=== PATIENT | male | born 1970 | race African-American/Black ===

== ENCOUNTER 2018-11-10 22:36 | Emergency (ER) | payer SELFPAY ==
[2018-11-11] MEDS ORDERED: ONDANSETRON HCL INJ/PF 4 MG/2 ML SDV IV ONE (00:22)
[2018-11-11] MEDS ORDERED: NORMAL SALINE 1000 ML 1,000 ML IV ONE (00:22)
--- NOTE | 2018-11-11 00:24 | ER Document Report ---
ED Medical Screen (RME) - General Chief Complaint: Abdominal Pain Stated Complaint: VOMITTING,SHAKES,STOMACH PAIN Time Seen by Provider: 11/11/18 00:19 Primary Care Provider: ISABEL JOSEPH MD [Primary Care Provider] - Follow up as needed Notes: 48-year-old male with complains of vomiting, diarrhea, abdominal pain, cough, generalized weakness, chills. Symptoms started yesterday. He states he feels much worse today. He smokes, drinks alcohol occasionally, denies daily medications, surgeries, or diagnosed medical problems. TRAVEL OUTSIDE OF THE [place] IN LAST 30 DAYS: No Physical Exam - Vital signs Vitals: Temp Pulse Resp BP Pulse Ox 98.2 F 80 20 149/85 H 98 11/10/18 22:48 11/10/18 22:48 11/10/18 22:48 11/10/18 22:48 11/10/18 22:48 - Abdominal Tenderness: Tender - Tender in the general upper abdomen, lower abdomen appears benign. Exam is limited by sitting position. Course - Re-evaluation Re-evalutation: I have greeted and performed a rapid initial assessment of this patient. A comprehensive ED assessment and evaluation of the patient, analysis of test results and completion of the medical decision making process will be conducted by additional ED providers. - Vital Signs Vital signs: Temp Pulse Resp BP Pulse Ox 98.2 F 80 20 149/85 H 98 11/10/18 22:48 11/10/18 22:48 11/10/18 22:48 11/10/18 22:48 11/10/18 22:48 Doctor's Discharge - Discharge Referrals: ISABEL JOSEPH MD [Primary Care Provider] - Follow up as needed
[2018-11-11 02:33] LABS: APPEARANCE,URINE CLEAR; BILIRUBIN,URINE NEGATIVE (NEGATIVE); COLOR,URINE YELLOW; GLUCOSE, URINE NEGATIVE (NEGATIVE); KETONES,URINE NEGATIVE (NEGATIVE); LEUKOCYTE ESTERASE,URINE NEGATIVE (NEGATIVE); NITRITE,URINE NEGATIVE (NEGATIVE); PROTEIN,URINE NEGATIVE (NEGATIVE); URINE SPECIFIC GRAVITY 1.005; UROBILINOGEN,URINE NEGATIVE mg/dL (<2.0)
[2018-11-11 02:47] LABS: ABSOLUTE EOSINOPHILS # (AUTO) 0.1 10^3/uL (0.0-0.6); ABSOLUTE LYMPHOCYTES (AUTO) 0.8 10^3/uL (0.5-4.7); ABSOLUTE MONOCYTES (AUTO) 0.6 10^3/uL (0.1-1.4); ABSOLUTE NEUT (AUTO) 2.1 10^3/uL (1.7-8.2); BASOPHILS % (AUTO) 1.3 % (0-2); EOSINOPHILS % (AUTO) 1.8 % (0-6); HEMATOCRIT 36.1 % (37.9-51.0); HEMOGLOBIN 12.2 g/dL (13.5-17.0); LYMPHOCYTES % (AUTO) 22.7 % (13-45); MEAN CORPUSCULAR HEMOGLOBIN 33.7 pg (27.0-33.4); MEAN CORPUSCULAR HGB CONC 33.8 g/dL (32.0-36.0); MEAN CORPUSCULAR VOLUME 100 fl (80-97); RED BLOOD COUNT 3.62 10^6/uL (4.35-5.55); RED CELL DISTRIBUTION WIDTH 16.8 % (11.5-14.0); SEGMENTED NEUTROPHILS % (AUTO) 58.2 % (42-78); TOTAL CELLS COUNTED % (AUTO) 100 %; WHITE BLOOD COUNT 3.5 10^3/uL (4.0-10.5)
[2018-11-11 02:53] LABS: PLATELET COUNT 35 10^3/uL (150-450)
[2018-11-11 03:15] LABS: ALANINE AMINOTRANSFERASE 84 U/L (21-72); ALBUMIN 4.1 g/dL (3.5-5.0); ALKALINE PHOSPHATASE 51 U/L (38-126); ANION GAP 8 (5-19); ASPARTATE AMINO TRANSFERASE 203 U/L (17-59); BILIRUBIN,DIRECT 0.4 mg/dL (0.0-0.4); BILIRUBIN,TOTAL 0.9 mg/dL (0.2-1.3); BLOOD UREA NITROGEN 6 mg/dL (7-20); CALCIUM 9.3 mg/dL (8.4-10.2); CARBON DIOXIDE 24 mmol/L (22-30); CHLORIDE 105 mmol/L (98-107); GLUCOSE 80 mg/dL (75-110); LIPASE 186.3 U/L (23-300); POTASSIUM 3.9 mmol/L (3.6-5.0); SODIUM 137.3 mmol/L (137-145); TOTAL PROTEIN 7.3 g/dL (6.3-8.2)
--- NOTE | 2018-11-11 03:51 | RADIOLOGY REPORT (SQ) ---
EXAM DESCRIPTION: X-ray two view chest. CLINICAL HISTORY: 48 years Male, chills, cough COMPARISON: None. TECHNIQUE: PA and Lateral views of the chest performed on 11/11/2018 at 3:24 AM FINDINGS: The lungs are well expanded and are clear. The costophrenic sulci are clear. There is no evidence of a pneumothorax. The cardiac silhouette is normal in size. The mediastinal contours are normal. No acute osseous abnormalities are identified. No focal soft tissue abnormalities are identified. IMPRESSION: No evidence of acute intrathoracic disease.
[2018-11-11] MEDS ORDERED: ONDANSETRON ODT 4 MG TAB (6 TAB/ER DISP) PO PRN (04:11)
[2018-11-11] MEDS ORDERED: LOPERAMIDE HCL 2 MG CAPSULE PO ONE (04:11)
--- NOTE | 2018-11-11 04:12 | ER Document Report ---
ED General - General Chief Complaint: Abdominal Pain Stated Complaint: VOMITTING,SHAKES,STOMACH PAIN Time Seen by Provider: 11/11/18 00:19 Primary Care Provider: ISABEL JOSEPH MD [NO LOCAL MD] - Follow up as needed Notes: Patient is a 48-year-old male without chronic medical problems, admits to heavy alcohol use, presents complaining of, nasal congestion, sore throat, abdominal cramping, vomiting and diarrhea. Patient states that his symptoms started approximately 24 hours ago, been worsening since onset. Regards him as being moderate to severe in nature. Abdominal discomfort is described as a cramping, throbbing, upper abdominal discomfort worsened by vomiting or diarrheal bowel movements. Has not tried anything for relief of his symptoms prior to presentation today. Denies a history of similar symptoms in the past. No known sick contacts. Has not seen his primary care physician regarding today's concerns. Denies fever. TRAVEL OUTSIDE OF THE [place] IN LAST 30 DAYS: No Past Medical History - General Information source: Patient - Social History Smoking Status: Current Every Day Smoker Frequency of alcohol use: Heavy Drug Abuse: None Lives with: Spouse/Significant other Family History: Reviewed & Not Pertinent Patient has suicidal ideation: No Patient has homicidal ideation: No Renal/ Medical History: Denies: Hx Peritoneal Dialysis Review of Systems - Review of Systems Notes: Constitutional: Negative for fever. HENT: Positive for sore throat. Eyes: Negative for visual changes. Cardiovascular: Negative for chest pain. Respiratory: Negative for shortness of breath. Positive cough Gastrointestinal: Positive for abdominal cramping, vomiting and diarrhea Genitourinary: Negative for dysuria. Musculoskeletal: Negative for back pain. Skin: Negative for rash. Neurological: Negative for headaches, weakness or numbness. 10 point ROS negative except as marked above and in HPI. Physical Exam - Vital signs Vitals: Temp Pulse Resp BP Pulse Ox 98.2 F 80 20 149/85 H 98 11/10/18 22:48 11/10/18 22:48 11/10/18 22:48 11/10/18 22:48 11/10/18 22:48 Interpretation: Hypertensive Notes: PHYSICAL EXAMINATION: GENERAL: Well-appearing, well-nourished and in no acute distress. HEAD: Atraumatic, normocephalic. EYES: Pupils equal round and reactive to light, extraocular movements intact, sclera anicteric, conjunctiva are normal. ENT: nares patent, oropharynx clear without exudates. Moist mucous membranes. NECK: Normal range of motion, supple without lymphadenopathy LUNGS: Breath sounds clear to auscultation bilaterally and equal. No wheezes rales or rhonchi. HEART: Regular rate and rhythm without murmurs ABDOMEN: Soft, nontender, normoactive bowel sounds. No guarding, no rebound. No masses appreciated. EXTREMITIES: Normal range of motion, no pitting or edema. No cyanosis. NEUROLOGICAL: No focal neurological deficits. Moves all extremities spontaneously and on command. PSYCH: Normal mood, normal affect. SKIN: Warm, Dry, normal turgor, no rashes or lesions noted. Course - Re-evaluation Re-evalutation: 11/11/18 04:10 Patient presents with a multitude of symptoms that are most consistent with a viral etiology particular given that he is having sore throat, nasal congestion, cough, abdominal cramping, vomiting and diarrhea. His work-up here today reveals findings consistent with chronic alcohol abuse with transaminitis and alcohol abuse pattern as well as a macrocytic anemia. Otherwise unremarkable. Patient has had improvement of symptoms after receiving IV fluids, antiemetics and has been able to tolerate oral intake without any difficulty. On abdominal exam there is no focal areas of tenderness, rebound or guarding to suggest an acute pink otitis, bili pathology or acute appendicitis. I have advised alcohol cessation. Symptomatic care has been advised at home. At this time will discharge with return precautions and follow-up recommendations. Verbal discharge instructions given a the bedside and opportunity for questions given. Medication warnings reviewed. Patient is in agreement with this plan and has verbalized understanding of return precautions and the need for primary care follow-up in the next 24-72 hours. - Vital Signs Vital signs: Temp Pulse Resp BP Pulse Ox 98.2 F 80 20 149/85 H 98 11/10/18 22:48 11/10/18 22:48 11/10/18 22:48 11/10/18 22:48 11/10/18 22:48 - Laboratory Result Diagrams: 11/11/18 02:29 11/11/18 02:29 Laboratory results interpreted by me: 11/11/18 11/11/18 02:29 02:29 WBC 3.5 L RBC 3.62 L Hgb 12.2 L Hct 36.1 L MCV 100 H MCH 33.7 H RDW 16.8 H Plt Count 35 L Monocytes % 16.0 H BUN 6 L AST 203 H ALT 84 H - Diagnostic Test Radiology reviewed: Image reviewed, Reports reviewed Radiology results interpreted by me: 11/11/18 04:11 Chest x-ray: No acute infiltrate pneumothorax Discharge - Discharge Clinical Impression: Vomiting and diarrhea, Abdominal cramping, Sore throat, Cough Condition: Good Disposition: HOME, SELF-CARE Additional Instructions: Your symptoms are likely due to a viral illness and should resolve in the next several days. You can take mvcr-qnh-[id number] loperamide also known as Imodium as needed for diarrhea per box instructions. Continue to stay hydrated with plenty of solution such as Gatorade or Pedialyte. You are being prescribed Zofran to take as needed for nausea and vomiting. Please return if you develop severe abdominal pain, have difficulty breathing, develop severe headache, develop fever greater than 100.4 F, pass out, become unable to tolerate any oral fluids for 12 more hours, or any other symptoms that are concerning to you. Referrals: ISABEL JOSEPH MD [NO LOCAL MD] - Follow up in 3-5 days
[2018-11-11 04:43] VITALS: BP 124/89
== END 2018-11-11 04:53 | disposition home or self-care (01) ==
LOC: ER 22:36
DX: R11.10 Vomiting, unspecified (principal); R19.7 Diarrhea, unspecified; R10.9 Unspecified abdominal pain; J02.9 Acute pharyngitis, unspecified; R05 Cough; R25.1 Tremor, unspecified; R09.81 Nasal congestion; F17.200 Nicotine dependence, unspecified, uncomplicated
CPT/HCPCS: 99284; 96361; 96374; 36415; 83690; 85025; 80053; 81001; 71046; J2405; J7030

== ENCOUNTER 2019-10-22 16:34 | Emergency (ER) | payer SELFPAY ==
--- NOTE | 2019-10-22 17:32 | ER Document Report ---
ED Medical Screen (RME) - General Chief Complaint: Flank Pain Stated Complaint: LEFT FLANK PAIN Time Seen by Provider: 10/22/19 17:20 TRAVEL OUTSIDE OF THE [place] IN LAST 30 DAYS: No - HPI Notes: 10/22/19 17:29 49-year-old male with a history of hypertension presents emergency room for evaluation of left flank pain after falling 2 days ago in the bathroom, which she cannot recall her account for other than his friends telling him that he did fall in the bathroom. Patient states he just walked out of the bathroom and continued on his evening. Patient states he did have a few drinks but denies any excessive drinking or any illicit substances. Patient states he wants to get his head "checked out" because he does not recall falling. Has not tried any pufa-rwa-absddln medications. Patient is not on blood any blood thinners. Patient states he fell on September 14 and he did not get that checked out but he said he still has some pain since that time. Denies any chest pain, shortness of breath, nausea vomiting or diarrhea, denies any fevers or chills. Patient ambulates without any issues. Does not use a cane or any wheelchair. I have greeted and performed a rapid initial assessment of this patient. A comprehensive ED assessment and evaluation of the patient, analysis of test results and completion of the medical decision making process will be conducted by additional ED providers. PHYSICAL EXAMINATION: GENERAL: Well-appearing, well-nourished and in no acute distress. HEAD: Atraumatic, normocephalic. EYES: Pupils equal round extraocular movements intact, conjunctiva are normal. NECK: Normal range of motion CV: s1, s2 regular LUNGS: No respiratory distress abd: Left flank pain on palpation, no ecchymosis. [employer] holloway's sign. Musculoskeletal: Normal range of motion NEUROLOGICAL: Normal speech, normal gait. SKIN: Warm, Dry, normal turgor, no rashes or lesions noted. - Related Data Allergies/Adverse Reactions: No Known Allergies Allergy (Unverified 10/22/19 17:19) Past Medical History Renal/ Medical History: Denies: Hx Peritoneal Dialysis Physical Exam - Vital signs Vitals: Temp Pulse Resp BP Pulse Ox 98.7 F 77 16 147/91 H 98 10/22/19 16:42 10/22/19 16:42 10/22/19 16:42 10/22/19 16:42 10/22/19 16:42 Course - Vital Signs Vital signs: Temp Pulse Resp BP Pulse Ox 98.7 F 77 16 147/91 H 98 10/22/19 17:20 10/22/19 16:42 10/22/19 16:42 10/22/19 16:42 10/22/19 16:42
[2019-10-22 18:05] LABS: ABSOLUTE BASOPHILS # (AUTO) 0.1 10^3/uL (0.0-0.2); ABSOLUTE LYMPHOCYTES (AUTO) 0.8 10^3/uL (0.5-4.7); ABSOLUTE MONOCYTES (AUTO) 0.6 10^3/uL (0.1-1.4); ABSOLUTE NEUT (AUTO) 2.6 10^3/uL (1.7-8.2); BASOPHILS % (AUTO) 1.5 % (0-2); EOSINOPHILS % (AUTO) 0.3 % (0-6); HEMATOCRIT 36.9 % (37.9-51.0); HEMOGLOBIN 12.6 g/dL (13.5-17.0); MEAN CORPUSCULAR HEMOGLOBIN 33.7 pg (27.0-33.4); MEAN CORPUSCULAR HGB CONC 34.1 g/dL (32.0-36.0); MEAN CORPUSCULAR VOLUME 99 fl (80-97); RED BLOOD COUNT 3.73 10^6/uL (4.35-5.55); RED CELL DISTRIBUTION WIDTH 16.5 % (11.5-14.0); SEGMENTED NEUTROPHILS % (AUTO) 63.2 % (42-78); TOTAL CELLS COUNTED % (AUTO) 100 %
[2019-10-22] MEDS ORDERED: ACETAMINOPHEN 325 MG TABLET PO ONE (18:10)
--- NOTE | 2019-10-22 18:10 | ER Document Report ---
Entered by SANGITA LUCAS SCRIBE 10/22/19 [id number] Acting as scribe for:NURIA NORRIS DO ED General - General Chief Complaint: Flank Pain Stated Complaint: LEFT FLANK PAIN Time Seen by Provider: 10/22/19 17:20 Information source: Patient Notes: This 49-year-old male presents to the emergency department complaining of left flank pain that began yesterday. Patient states that pain is worsened to cough and blow his nose. Patient reports a right-sided headache. Patient denies chest pain, shortness of breath, fever and chills. Patient explains that his head has been hurting since a fall on September 14. Patient states that two days ago he fell in the bathroom again. Patient said that he had two beers and two mixed drinks on the day of the fall two days ago. Patient states that he has increased his drinking lately because he has not had to work. Patient has not taken anything for the pain in his left flank. Patient denies sick exposure. TRAVEL OUTSIDE OF THE [place] IN LAST 30 DAYS: No - Related Data Allergies/Adverse Reactions: No Known Allergies Allergy (Unverified 10/22/19 17:19) Past Medical History - General Information source: Patient - Social History Smoking Status: Current Every Day Smoker Cigarette use (# per day): Yes Chew tobacco use (# tins/day): No Frequency of alcohol use: Heavy Drug Abuse: None Family History: Reviewed & Not Pertinent Patient has homicidal ideation: No - Past Medical History Cardiac Medical History: Reports: Hx Hypertension Surgical Hx: Negative Review of Systems - Review of Systems Constitutional: See HPI. denies: Chills, Fever EENT: No symptoms reported Cardiovascular: See HPI. denies: Chest pain Respiratory: See HPI. denies: Short of breath Gastrointestinal: No symptoms reported Genitourinary: See HPI, Flank pain Male Genitourinary: No symptoms reported Musculoskeletal: No symptoms reported Skin: No symptoms reported Hematologic/Lymphatic: No symptoms reported Neurological/Psychological: See HPI, Headaches -: Yes All other systems reviewed and negative Physical Exam - Vital signs Vitals: Temp Pulse Resp BP Pulse Ox 98.7 F 77 16 147/91 H 98 10/22/19 16:42 10/22/19 16:42 10/22/19 16:42 10/22/19 16:42 10/22/19 16:42 - Notes Notes: Physical Exam: General: Alert, appears well. HEENT: Normocephalic. Atraumatic. PERRL. Extraocular movements intact. Orophary nx clear. Neck: Supple. Non-tender. Respiratory: No respiratory distress. Clear and equal breath sounds bilaterally. Left posterior flank is tender to palpation. Tenderness is worsened with positi on changes and light palpation. Cardiovascular: Regular rate and rhythm. Abdominal: Normal Inspection. Non-tender. No distension. Normal Bowel Sounds. Back: No gross abnormalities. Extremities: Moves all four extremities. Upper extremities: Normal inspection. Normal ROM. Lower extremities: Normal inspection. No edema. Normal ROM. Neurological: Normal cognition. AAOx4. Normal speech. Psychological: Normal affect. Normal Mood. Skin: Warm. Dry. Normal color. Course - Re-evaluation Re-evalutation: 10/22/19 20:03 MDM 49 year old with left flank pain for a few days since fall. Palpable and reproducable pain in left side and no deformity. Exam is consistent with contusion/ muscle strain. Also right parietal pain and only previous visit showed macrocytic anemia and thrombocytopenia and etoh use and he tells me he drinking daily now. That and known low platelets make him a possibility for SDH. Due to this ct of head is obtained and is without acute abnormality. We discussed smoking cessation. - Vital Signs Vital signs: Temp Pulse Resp BP Pulse Ox 98.6 F 63 18 147/95 H 100 10/22/19 20:30 10/22/19 20:30 10/22/19 20:30 10/22/19 20:30 10/22/19 20:30 - Laboratory Result Diagrams: 10/22/19 17:30 10/22/19 17:30 Laboratory results interpreted by me: 10/22/19 10/22/19 10/22/19 17:30 17:30 17:30 RBC 3.73 L Hgb 12.6 L Hct 36.9 L MCV 99 H MCH 33.7 H RDW 16.5 H Plt Count 64 L [place] % (Auto) 14.0 H Sodium 135.1 L AST 68 H Total Protein 8.5 H Urine Protein 30 H Urine Ketones 20 H Urine Urobilinogen 2.0 H - Diagnostic Test Radiology reviewed: Image reviewed, Reports reviewed - EKG Interpretation by Me EKG shows normal: Sinus rhythm Rate: Normal Rhythm: NSR [place]/QRS: Left axis deviation - NSR Left axis [address] elevation or d epression my interpretation. Discharge - Discharge Clinical Impression: Thrombocytopenia, Left flank pain Condition: Good Disposition: HOME, SELF-CARE Instructions: Family Physicians / Practices, Muscle Strain ([facility]), Thrombocytopenia ([facility]) Additional Instructions: Avoid alcohol use. Your platelets were low which may be related to alcohol use. Please return here for any problems or any concerns. Prescriptions: Cyclobenzaprine HCl [Flexeril 10 mg Tablet] 10 mg PO TIDP PRN #15 tab PRN Reason: Forms: Elevated Blood Pressure I personally performed the services described in the documentation, reviewed and edited the documentation which was dictated to the scribe in my presence, and it accurately records my words and actions.
[2019-10-22 18:15] LABS: ALBUMIN 4.8 g/dL (3.5-5.0); ALCOHOL 17 mg/dL (NONE DETECTED); ALKALINE PHOSPHATASE 58 U/L (38-126); ANION GAP 13 (5-19); ASPARTATE AMINO TRANSFERASE 68 U/L (17-59); BILIRUBIN,TOTAL 0.7 mg/dL (0.2-1.3); BLOOD UREA NITROGEN 11 mg/dL (7-20); CALCIUM 9.8 mg/dL (8.4-10.2); CARBON DIOXIDE 24 mmol/L (22-30); CHLORIDE 98 mmol/L (98-107); GLUCOSE 86 mg/dL (75-110); TOTAL PROTEIN 8.5 g/dL (6.3-8.2)
[2019-10-22 18:25] LABS: PLATELET COUNT 64 10^3/uL (150-450)
[2019-10-22 18:33] LABS: INTERNATIONAL RATION (INR) 0.93; PROTHROMBIN TIME 12.5 SEC (11.4-15.4)
[2019-10-22 18:42] LABS: APPEARANCE,URINE SLIGHTLY-CLOUDY; BILIRUBIN,URINE NEGATIVE (NEGATIVE); COLOR,URINE YELLOW; GLUCOSE, URINE NEGATIVE (NEGATIVE); KETONES,URINE 20 mg/dL (NEGATIVE); LEUKOCYTE ESTERASE,URINE NEGATIVE (NEGATIVE); NITRITE,URINE NEGATIVE (NEGATIVE); PROTEIN,URINE 30 mg/dL (NEGATIVE); URINE SPECIFIC GRAVITY 1.023
--- NOTE | 2019-10-22 18:46 | RADIOLOGY REPORT (SQ) ---
EXAM DESCRIPTION: CT HEAD WITHOUT IMAGES COMPLETED DATE/TIME: 10/22/2019 6:36 pm REASON FOR STUDY: s/p fall x 2 days ago with loc COMPARISON: None. TECHNIQUE: Axial images acquired through the brain without intravenous contrast. Images reviewed wi th bone, brain and subdural windows. Additional sagittal and coronal reconstructions were generated. Images stored on PACS. All CT scanners at this facility use dose modulation, iterative reconstruction, and/or weight based d osing when appropriate to reduce radiation dose to as low as reasonably achievable (ALARA). [facility]: Dose Right [facility]: CareDose [facility]: Dose Right [facility]: Teradose 4D [facility]: [employer] RADIATION DOSE: mGy. LIMITATIONS: None. FINDINGS: VENTRICLES: Normal size and contour. CEREBRUM: No masses. No hemorrhage. No midline shift. No evidence for acute infarction. Normal gra y/white matter differentiation. No areas of low density in the white matter. CEREBELLUM: No masses. No hemorrhage. No alteration of density. No evidence for acute infarction. EXTRAAXIAL SPACES: No fluid collections. No masses. ORBITS AND GLOBE: No intra- or extraconal masses. Normal contour of globe without masses. CALVARIUM: No fracture. PARANASAL SINUSES: No fluid or mucosal thickening. SOFT TISSUES: No mass or hematoma. OTHER: No other significant finding. IMPRESSION: NORMAL BRAIN CT WITHOUT CONTRAST. EVIDENCE OF ACUTE STROKE: NO. COMMENT: Quality ID # 436: Final reports with documentation of one or more dose reduction techniques (e.g., Automated exposure control, adjustment of the mA and/or kV according to patient size, use of iterative reconstruction technique) TECHNICAL DOCUMENTATION: JOB ID: [id number] 2010 [employer]- All Rights Reserved Reading location - IP/workstation name: [email or web address]
--- NOTE | 2019-10-22 18:47 | RADIOLOGY REPORT (SQ) ---
EXAM DESCRIPTION: CT CERVICAL SPINE WITHOUT IMAGES COMPLETED DATE/TIME: 10/22/2019 6:36 pm REASON FOR STUDY: s/p fall x 2 days ago with loc COMPARISON: None. TECHNIQUE: Axial images acquired through the cervical spine without intravenous contrast. Images re viewed with lung, soft tissue and bone windows. Reconstructed coronal and sagittal MPR images review ed. Images stored on PACS. All CT scanners at this facility use dose modulation, iterative reconstruction, and/or weight based d osing when appropriate to reduce radiation dose to as low as reasonably achievable (ALARA). [facility]: Dose Right [facility]: CareDose [facility]: Dose Right [facility]: Teradose 4D [facility]: [employer] RADIATION DOSE: CT Rad equipment meets quality standard of care and radiation dose reduction techniq ues were employed. CTDIvol: 22.4 - 53.2 mGy. DLP: 1602 mGy-cm. mGy. LIMITATIONS: None. FINDINGS: ALIGNMENT: Anatomic. MINERALIZATION: Normal. VERTEBRAL BODIES: No fractures or dislocation. DISCS: No significant disc disease. FACETS, LATERAL MASSES, POSTERIOR ELEMENTS: No fractures. No dislocation. No acute findings. HARDWARE: None in the spine. VISUALIZED RIBS: No fractures. LUNG APICES AND SOFT TISSUES: No significant or acute findings. OTHER: No other significant finding. IMPRESSION: NO ACUTE OR SIGNIFICANT FINDINGS IN THE CERVICAL SPINE. TECHNICAL DOCUMENTATION: JOB ID: [id number] Quality ID # 436: Final reports with documentation of one or more dose reduction techniques (e.g., Au tomated exposure control, adjustment of the mA and/or kV according to patient size, use of iterative reconstruction technique) 2010 [employer]- All Rights Reserved Reading location - IP/workstation name: [email or web address]
--- NOTE | 2019-10-22 18:51 | RADIOLOGY REPORT (SQ) ---
EXAM DESCRIPTION: CT ABD/PELVIS WITH IV ONLY IMAGES COMPLETED DATE/TIME: 10/22/2019 6:36 pm REASON FOR STUDY: fall x 2d, no recollection of fall, L flank pain COMPARISON: None. TECHNIQUE: CT scan of the abdomen and pelvis performed using helical scanning technique with dynamic intravenous contrast injection. No oral contrast. Images reviewed with lung, soft tissue, and bone windows. Reconstructed coronal and sagittal MPR images reviewed. Delayed images for evaluation of the urinary system also acquired. All images stored on PACS. All CT scanners at this facility use dose modulation, iterative reconstruction, and/or weight based d osing when appropriate to reduce radiation dose to as low as reasonably achievable (ALARA). [facility]: Dose Right [facility]: CareDose [facility]: Dose Right [facility]: Teradose 4D [facility]: [employer] CONTRAST TYPE AND DOSE: contrast/concentration: Isovue 350.00 mg/ml; Total Contrast Delivered: 85.0 ml; Total Saline Delivered: 68.0 ml RENAL FUNCTION: BUN 11 creatinine 0.84 RADIATION DOSE: CT Rad equipment meets quality standard of care and radiation dose reduction techniq ues were employed. CTDIvol: 9.6 - 14.4 mGy. DLP: 1217 mGy-cm.. LIMITATIONS: None. FINDINGS: LOWER CHEST: No significant findings. No nodules or infiltrates. LIVER: The liver is diffusely hypoattenuating. No masses.c SPLEEN: Normal size. No focal lesions. PANCREAS: No masses. No significant calcifications. No adjacent inflammation or peripancreatic fluid collections. Pancreatic duct not dilated. GALLBLADDER: No identified stones by CT criteria. No inflammatory changes to suggest cholecystitis. ADRENAL GLANDS: No significant masses or asymmetry. RIGHT KIDNEY AND URETER: No solid masses. No significant calcifications. No hydronephrosis or hyd roureter. LEFT KIDNEY AND URETER: No solid masses. No significant calcifications. No hydronephrosis or hydr oureter. AORTA AND VESSELS: No aneurysm. No dissection. Renal arteries, SMA, celiac without stenosis. RETROPERITONEUM: No retroperitoneal adenopathy, hemorrhage or masses. BOWEL AND PERITONEAL CAVITY: No masses or inflammatory changes. No free fluid or peritoneal masses. APPENDIX: Normal. PELVIS: No mass. No free fluid. Normal bladder. ABDOMINAL WALL: No masses. No hernias. BONES: No significant or acute findings. OTHER: No other significant finding. IMPRESSION: Hepatic steatosis. No other significant finding in the abdomen or pelvis. TECHNICAL DOCUMENTATION: JOB ID: [id number] Quality ID # 436: Final reports with documentation of one or more dose reduction techniques (e.g., Au tomated exposure control, adjustment of the mA and/or kV according to patient size, use of iterative reconstruction technique) 2010 [employer]- All Rights Reserved Reading location - IP/workstation name: [email or web address]
[2019-10-22 18:58] LABS: URINE AMPHETAMINES SCREEN NEGATIVE; URINE BARBITURATES SCREEN NEGATIVE; URINE BENZODIAZEPINES SCREEN NEGATIVE; URINE COCAINE SCREEN NEGATIVE; URINE METHADONE SCREEN NEGATIVE; URINE PHENCYCLIDINE SCREEN NEGATIVE
[2019-10-22 18:59] LABS: URINE MARIJUANA (THC) SCREEN UNCONFIRMED POSITIVE
[2019-10-22 20:34] VITALS: BP 147/95
--- NOTE | 2019-10-22 20:51 | EKG REPORT ---
SEVERITY:- ABNORMAL ECG - SINUS RHYTHM PROBABLE LEFT ATRIAL ABNORMALITY LEFT AXIS DEVIATION CONSIDER ANTEROSEPTAL INFARCT NONSPECIFIC T ABNORMALITIES, INFERIOR LEADS : Confirmed by: Yari Matos MD 22-Oct-2019 20:50:46
== END 2019-10-22 20:34 | disposition home or self-care (01) ==
LOC: ER 16:34
DX: R10.9 Unspecified abdominal pain (principal); R51 Headache; W19.XXXA Unspecified fall, initial encounter; D69.6 Thrombocytopenia, unspecified; R10.819 Abdominal tenderness, unspecified site; F17.210 Nicotine dependence, cigarettes, uncomplicated; I10 Essential (primary) hypertension
CPT/HCPCS: 36415; 70450; 72125; 74177; 80053; 80307; 81001; 85025; 85610; 93005; 93010; 99284

== ENCOUNTER 2020-05-04 08:31 | Emergency (ER) | payer SELFPAY ==
--- NOTE | 2020-05-04 10:43 | RADIOLOGY REPORT (SQ) ---
EXAM DESCRIPTION: CT FACIAL AREA WITHOUT IMAGES COMPLETED DATE/TIME: 05/04/2020 10:29 am REASON FOR STUDY: fall/pain COMPARISON: None. TECHNIQUE: Noncontrasted images through the facial bones and orbits windowed for bone and soft tissu e. Additional coronal and sagittal reconstructed images reviewed. All images stored on PACS. All CT scanners at this facility use dose modulation, iterative reconstruction, and/or weight based d osing when appropriate to reduce radiation dose to as low as reasonably achievable (ALARA). [facility]: Dose Right [facility]: CareDose [facility]: Dose Right [facility]: Teradose 4D [facility]: [employer] RADIATION DOSE: CT Rad equipment meets quality standard of care and radiation dose reduction techniq ues were employed. CTDIvol: 30.4 mGy. DLP: 621 mGy-cm. mGy. LIMITATIONS: None. FINDINGS: FACIAL BONES: No fracture or bone lesion. ORBITS: Intact. No fracture. Symmetric intact globes and retroorbital soft tissues. PARANASAL SINUSES: No fluid levels. SOFT TISSUES: Left frontal and periorbital hematoma. INFERIOR BRAIN: See separate report same date. OTHER: No other significant finding. IMPRESSION: Left periorbital hematoma. No fracture. TECHNICAL DOCUMENTATION: JOB ID: [id number] Quality ID # 436: Final reports with documentation of one or more dose reduction techniques (e.g., Au tomated exposure control, adjustment of the mA and/or kV according to patient size, use of iterative reconstruction technique) 2010 [employer]- All Rights Reserved Reading location - IP/workstation name: [email or web address]
--- NOTE | 2020-05-04 10:45 | RADIOLOGY REPORT (SQ) ---
EXAM DESCRIPTION: CT HEAD WITHOUT IMAGES COMPLETED DATE/TIME: 05/04/2020 10:29 am REASON FOR STUDY: fall/pain COMPARISON: 10/22/2019 TECHNIQUE: Axial images acquired through the brain without intravenous contrast. Images reviewed wi th bone, brain and subdural windows. Additional sagittal and coronal reconstructions were generated. Images stored on PACS. All CT scanners at this facility use dose modulation, iterative reconstruction, and/or weight based d osing when appropriate to reduce radiation dose to as low as reasonably achievable (ALARA). [facility]: Dose Right [facility]: CareDose [facility]: Dose Right [facility]: Teradose 4D [facility]: Smart [employer] RADIATION DOSE: CT Rad equipment meets quality standard of care and radiation dose reduction techniq ues were employed. CTDIvol: 53.2 mGy. DLP: 1070 mGy-cm. mGy. LIMITATIONS: None. FINDINGS: VENTRICLES: Normal size and contour. CEREBRUM: No masses. No hemorrhage. No midline shift. No evidence for acute infarction. Normal gra y/white matter differentiation. No areas of low density in the white matter. CEREBELLUM: No masses. No hemorrhage. No alteration of density. No evidence for acute infarction. EXTRAAXIAL SPACES: No fluid collections. No masses. ORBITS AND GLOBE: No intra- or extraconal masses. Normal contour of globe without masses. CALVARIUM: No fracture. PARANASAL SINUSES: No fluid levels. SOFT TISSUES: Left frontal scalp and periorbital hematoma. OTHER: No other significant finding. IMPRESSION: No acute findings in the brain. Left frontal scalp and periorbital hematoma. EVIDENCE OF ACUTE STROKE: NO. COMMENT: Quality ID # [id number]: Final reports with documentation of one or more dose reduction techniques (e.g., Automated exposure control, adjustment of the mA and/or kV according to patient size, use of iterative reconstruction technique) TECHNICAL DOCUMENTATION: JOB ID: [id number] 2010 [employer]- All Rights Reserved Reading location - IP/workstation name: [email or web address]
--- NOTE | 2020-05-04 10:50 | RADIOLOGY REPORT (SQ) ---
EXAM DESCRIPTION: TIBIA FIBULA LEFT IMAGES COMPLETED DATE/TIME: 05/04/2020 10:32 am REASON FOR STUDY: pain/fall COMPARISON: None. NUMBER OF VIEWS: Two views. TECHNIQUE: AP and lateral views of the left tibia and fibula were obtained. LIMITATIONS: None. FINDINGS: MINERALIZATION: Normal. BONES: No acute fracture or dislocation. No periosteal reaction. SOFT TISSUES: No soft tissue swelling or radiopaque foreign body. OTHER: No other findings. IMPRESSION: No acute osseous abnormality of the left tibia and fibula. TECHNICAL DOCUMENTATION: JOB ID: [id number] [employer]- All Rights Reserved Reading location - IP/workstation name: [email or web address]
--- NOTE | 2020-05-04 10:59 | RADIOLOGY REPORT (SQ) ---
EXAM DESCRIPTION: CT CERVICAL SPINE WITHOUT IMAGES COMPLETED DATE/TIME: 05/04/2020 10:29 am REASON FOR STUDY: fall/pain COMPARISON: 10/22/2019 TECHNIQUE: Axial images acquired through the cervical spine without intravenous contrast. Images re viewed with lung, soft tissue and bone windows. Reconstructed coronal and sagittal MPR images review ed. Images stored on PACS. All CT scanners at this facility use dose modulation, iterative reconstruction, and/or weight based d osing when appropriate to reduce radiation dose to as low as reasonably achievable (ALARA). [facility]: Dose Right [facility]: CareDose [facility]: Dose Right [facility]: Teradose 4D [facility]: Smart [employer] RADIATION DOSE: CT Rad equipment meets quality standard of care and radiation dose reduction techniq ues were employed. CTDIvol: 23.4 mGy. DLP: 437 mGy-cm. mGy. LIMITATIONS: None. FINDINGS: ALIGNMENT: Anatomic. MINERALIZATION: Normal. VERTEBRAL BODIES: No fractures or dislocation. DISCS: Mild disc disease. Stable. FACETS, LATERAL MASSES, POSTERIOR ELEMENTS: No fractures. No dislocation. No acute findings. HARDWARE: None in the spine. VISUALIZED RIBS: No fractures. LUNG APICES AND SOFT TISSUES: No significant or acute findings. OTHER: No other significant finding. IMPRESSION: NO ACUTE OR SIGNIFICANT FINDINGS IN THE CERVICAL SPINE. TECHNICAL DOCUMENTATION: JOB ID: [id number] Quality ID # [id number]: Final reports with documentation of one or more dose reduction techniques (e.g., Au tomated exposure control, adjustment of the mA and/or kV according to patient size, use of iterative reconstruction technique) 2010 [employer]- All Rights Reserved Reading location - IP/workstation name: [email or web address]
[2020-05-04 11:02] LABS: HEMATOCRIT 30.5 % (37.9-51.0); HEMOGLOBIN 10.2 g/dL (13.5-17.0); MEAN CORPUSCULAR HEMOGLOBIN 33.7 pg (27.0-33.4); MEAN CORPUSCULAR HGB CONC 33.5 g/dL (32.0-36.0); MEAN CORPUSCULAR VOLUME 101 fl (80-97); RED BLOOD COUNT 3.03 10^6/uL (4.35-5.55); RED CELL DISTRIBUTION WIDTH 15.8 % (11.5-14.0); WHITE BLOOD COUNT 2.7 10^3/uL (4.0-10.5)
[2020-05-04 11:13] LABS: ALBUMIN 3.8 g/dL (3.5-5.0); ALCOHOL 287 mg/dL (NONE DETECTED); ALKALINE PHOSPHATASE 70 U/L (38-126); ANION GAP 10 (5-19); ASPARTATE AMINO TRANSFERASE 143 U/L (17-59); BILIRUBIN,DIRECT 0.2 mg/dL (0.0-0.4); BILIRUBIN,TOTAL 0.5 mg/dL (0.2-1.3); BLOOD UREA NITROGEN 8 mg/dL (7-20); CALCIUM 8.3 mg/dL (8.4-10.2); CARBON DIOXIDE 23 mmol/L (22-30); CHLORIDE 109 mmol/L (98-107); GLUCOSE 80 mg/dL (75-110); POTASSIUM 4.5 mmol/L (3.6-5.0); TOTAL PROTEIN 7.1 g/dL (6.3-8.2)
[2020-05-04 11:34] LABS: ABSOLUTE LYMPHOCYTES# (MANUAL) 0.7 10^3/uL (0.5-4.7); ABSOLUTE MONOCYTES # (MANUAL) 0.2 10^3/uL (0.1-1.4); BAND NEUTROPHILS % (MANUAL) 1 % (3-5); BASOPHILS % (MANUAL) 2 % (0-2); EOSINOPHILS % (MANUAL) 1 % (0-6); LYMPHOCYTES % (MANUAL) 23 % (13-45); MONOCYTES % (MANUAL) 8 % (3-13); SEGMENTED NEUTROPHILS % (MAN) 63 % (42-78); TOTAL CELLS COUNTED 100
[2020-05-04 11:35] LABS: ANISOCYTOSIS 1+; PLATELET COMMENT DECREASED
[2020-05-04 11:37] LABS: POIKILOCYTOSIS 2+; TARGET CELLS SLIGHT
[2020-05-04 11:38] LABS: PLATELET COUNT 41 10^3/uL (150-450)
--- NOTE | 2020-05-04 11:59 | ER Document Report ---
ED Fall - General Chief Complaint: Fall Injury Stated Complaint: FALL Time Seen by Provider: 05/04/20 09:07 Primary Care Provider: [facility] [Provider Group] - Follow up in 3-5 days [facility] [Outside] - 05/04/20 1:00 pm Information source: Patient TRAVEL OUTSIDE OF THE [place] IN LAST 30 DAYS: No - HPI Notes: Patient presents after a fall at home. This fall happened apparently last night. When patient fell he states that the left part of his forehead hit a speaker on the floor. There was an apparent loss of consciousness for 1 to 2 seconds. The relative that is in the room with him. Relative states that the patient "drinks a lot". There has been no vomiting. Patient is complaining of some headache and facial pain on the left side. Also has some mild diffuse neck pain. No numbness or weakness. No paresthesias. No abdominal pain or back pain. Patient also apparently had a fall several weeks ago and had an injury to the left leg. He states his leg has been hurting ever since. The pain is mainly on the lower lateral aspect between the ankle and knee on the left. The main concern at this time though is the forehead pain and swelling of the orbital area on the left. This pain is constant. Is worse if touched but if left alone. No significant radiation of the pain. It is a moderate and aching sensation. - Related data Allergies/Adverse Reactions: poison veronika extract Allergy (Verified 05/04/20 09:22) Past Medical History - General Information source: Patient - Social History Smoking Status: Current Every Day Smoker Chew tobacco use (# tins/day): No Frequency of alcohol use: Heavy Drug Abuse: None Family History: Reviewed & Not Pertinent Patient has homicidal ideation: No - Past Medical History Cardiac Medical History: Reports: Hx Hypertension Renal/ Medical History: Denies: Hx Peritoneal Dialysis Review of Systems - Review of Systems Constitutional: denies: Chills, Fever Cardiovascular: denies: Chest pain, Palpitations Respiratory: denies: Cough, Short of breath -: Yes All other systems reviewed and negative Physical Exam - Vital signs Vitals: Resp Pulse Ox 13 97 05/04/20 08:35 05/04/20 08:35 Interpretation: Normal - General General appearance: Appears well, Alert - HEENT Head: Normocephalic, Ecchymosis, Tenderness, Other - Patient has tender swelling and ecchymosis on the left lateral forehead and left periorbital area mainly the superior aspect of the left periorbital area. Eyes: Periorbital ecchymosis, Periorbital edema Conjunctiva: Normal Cornea: Normal Extraocular movements intact: Yes Eyelashes: Normal Pupils: PERRL Ears: Normal Nasal: Normal Mouth/Lips: Normal Mucous membranes: Moist Neck: Other - C-collar is in place. There are some mild diffuse tenderness to palpation of the neck but no C-spine deformities. - Respiratory Respiratory status: No respiratory distress Chest status: Nontender Breath sounds: Normal Chest palpation: Normal - Cardiovascular Rhythm: Regular Heart sounds: Normal auscultation Murmur: No - Abdominal Inspection: Normal Distension: No distension Bowel sounds: Normal Tenderness: Nontender Organomegaly: No organomegaly - Back Back: Normal, Nontender - Extremities General upper extremity: Normal inspection, Nontender, Normal color, Normal ROM, Normal temperature General lower extremity: Normal ROM, Normal temperature, Other - Patient has a tender area on the lateral aspect left calf. It has a healing scab from the injury that he suffered apparently several weeks ago. I do not appreciate any signs of acute infection. There is no drainage. No significant induration. There is some mild erythema but no increased tempera. No: Bing's sign - Neurological Bramwell Coma Scale Eye Opening: Spontaneous Bramwell Coma Scale Verbal: Oriented Alice Coma Scale Motor: Obeys Commands Bramwell Coma Scale Total: 15 Speech: Normal - Psychological Associated symptoms: Normal affect, Normal mood - Skin Skin Temperature: Warm Skin Moisture: Dry Skin Color: Erythema, Ecchymosis Course - Re-evaluation Re-evalutation: 05/04/20 11:57 Patient presents after a fall that occurred last night. Patient labs are consistent with alcohol intoxication and family admits the patient "drinks heavily". Reviewing old records patient has been here before for alcohol intoxication and associated injuries. It was stressed to the patient the importance of stopping alcohol use and that if it continues he is likely to suffer permanent injury from falls, liver disease, bone marrow suppression among other possible pathologies. There is also stressed the is likely if he does not stop using alcohol and that permanent memory impairment may occur. Patient was referred to [facility]. Patient has no evidence of any injury from the fall other than some contusions and swelling. His globe is intact and vision is not impaired other than from the lid swelling. There is no evidence of neurological injury. - Vital Signs Vital signs: Temp Pulse Resp BP Pulse Ox 97.8 F 75 10 L 130/87 H 98 05/04/20 08:40 05/04/20 08:40 05/04/20 11:01 05/04/20 11:01 05/04/20 11:01 - Laboratory Result Diagrams: 05/04/20 10:35 05/04/20 10:35 Laboratory results interpreted by me: 05/04/20 05/04/20 10:35 10:35 WBC 2.7 L RBC 3.03 L Hgb 10.2 L Hct 30.5 L MCV 101 H MCH 33.7 H RDW 15.8 H Plt Count 41 L Band Neutrophils % 1 L Chloride 109 H Calcium 8.3 L AST 143 H - Diagnostic Test Radiology reviewed: Image reviewed, Reports reviewed Discharge - Discharge Clinical Impression: Alcohol abuse, Abrasion, left lower leg, initial encounter, Thrombocytopenia Fall Qualifiers: Encounter type: initial encounter Qualified Code(s): W19.XXXA - Unspecified fall, initial encounter Periorbital contusion of left eye Qualifiers: Encounter type: initial encounter Qualified Code(s): S05.12XA - Contusion of eyeball and orbital tissues, left eye, initial encounter Neutropenia Qualifiers: Neutropenia type: other Qualified Code(s): D70.8 - Other neutropenia Anemia Qualifiers: Anemia type: other cause Other causes of anemia: nutritional, other Qualified Code(s): D53.8 - Other specified nutritional anemias Condition: Stable Disposition: HOME, SELF-CARE Instructions: Acute Alcohol Intoxication ([facility]), Alcoholic Hepatitis ([facility]), Anemia, Iron Deficiency ([facility]), Chronic Alcoholism ([facility]), Contusion ([facility]) Additional Instructions: You need to stop using alcohol. Alcohol is currently causing your body to have problems producing the appropriate amount of blood cells. This can lead to anemia as well as to problems with excessive bleeding. Also if you do not stop your alcohol use it can lead to chronic issues such as liver failure, memory loss, and even . Please call [facility] as soon as possible for counseling concerning alcohol use. Please follow-up with a family doctor as soon as possible to have your anemia and low blood counts monitored. Prescriptions: Cephalexin Monohydrate [Keflex 500 mg Capsule] 500 mg PO Q6H 10 Days #40 capsule Forms: Return to Work Referrals: [facility] [Outside] - 05/04/20 1:00 pm [facility] [Provider Group] - Follow up in 3-5 days
[2020-05-04 13:03] VITALS: BP 140/88
== END 2020-05-04 13:03 | disposition home or self-care (01) ==
LOC: ER 08:31
DX: S00.12XA Contusion of left eyelid and periocular area, initial encounter (principal); S00.83XA Contusion of other part of head, initial encounter; S80.812A Abrasion, left lower leg, initial encounter; R55 Syncope and collapse; R51.9 Headache, unspecified; M54.2 Cervicalgia; W19.XXXA Unspecified fall, initial encounter; W22.09XA Striking against other stationary object, initial encounter; Y92.009 Unspecified place in unspecified non-institutional (private) residence as the place of occurrence of the external cause; D69.6 Thrombocytopenia, unspecified; D53.9 Nutritional anemia, unspecified; D70.9 Neutropenia, unspecified; F17.200 Nicotine dependence, unspecified, uncomplicated; I10 Essential (primary) hypertension; Z91.048 Other nonmedicinal substance allergy status
CPT/HCPCS: 36415; 70450; 70486; 72125; 80053; 80307; 85025; 99285